=== PATIENT | female | born 1975 | race Caucasian/White ===

== ENCOUNTER → 2017-10-24 | Outpatient (CLI) | payer BC ==
[2017-10-24 10:48] LABS: BASO % 0.4 %; BASO ABS # 0.02 K/uL (0-0.2); COMPLETE YES; EOS % 2.8 %; HEMATOCRIT 37.4 % (37-47); LYMPH % 34.3 %; LYMPH ABS # 1.87 K/uL (1.2-3.4); MEAN CELL VOLUME 98.2 fL (80-100); MEAN CORPUSCULAR HEMOGLOBIN 32.3 pg (25-34); MEAN CORPUSCULAR HGB CONC 32.9 g/dl (32-36); MEAN PLATELET VOLUME 10.5 fL (7.4-10.4); MONO % 9.2 %; NEUT % 53.3 %; PLATELET COUNT 211 K/uL (130-400); RED BLOOD COUNT 3.81 M/uL (4.2-5.4); WHITE BLOOD COUNT 5.45 K/uL (4.8-10.8)
[2017-10-24 11:17] LABS: ALT/SGPT 23 U/L (12-78); BLOOD UREA NITROGEN 16 mg/dl (7-18); BUN/CREATININE RATIO 23.2 (10-20); CALCIUM 8.4 mg/dl (8.5-10.1); CARBON DIOXIDE 27 mmol/L (21-32); CHLORIDE 105 mmol/L (98-107); CHOLESTEROL 185 mg/dl (0-200); GLUCOSE 90 mg/dl (70-99); POTASSIUM 3.8 mmol/L (3.5-5.1); SODIUM 138 mmol/L (136-145)
[2017-10-24 11:28] LABS: ALKALINE PHOSPHATASE 80 U/L (45-117); AST/SGOT 14 U/L (15-37); CHOLESTEROL/HDL RATIO 2.9; HDL CHOLESTEROL 63 mg/dl; LDL CHOLESTEROL CALCULATED 90 mg/dl; TRIGLYCERIDES 162 mg/dl (0-150); VERY LOW DENSITY LIPOPROT CALC 32 mg/dl
== END | disposition home or self-care (01) ==
LOC: C.LABBC 07:41
PROVIDERS: ATTEND Neuromusculoskeletal Medicine & OMM
DX: Z00.00 Encounter for general adult medical examination without abnormal findings (principal)

== ENCOUNTER → 2018-07-11 | Outpatient (CLI) | payer OTHER | END | disposition home or self-care (01) | LOC: C.LABSPEC 10:48 | PROVIDERS: ATTEND Neuromusculoskeletal Medicine & OMM | DX: R39.9 Unspecified symptoms and signs involving the genitourinary system (principal) ==

== ENCOUNTER 2019-04-09 19:04 | Inpatient (IN) ==
[2019-04-09 20:19] LABS: Basophils # (auto) 0.01 K/uL (0-0.2); Basophils % (auto) 0.2 %; Eosinophils # (auto) 0.09 K/uL (0-0.5); Eosinophils % (auto) 2.1 %; Hematocrit (blood only) 34.2 % (37-47); Hemoglobin 11.8 g/dL (12.0-16.0); Lymphocytes # (auto) 1.63 K/uL (1.2-3.4); Lymphocytes % (auto) 38.4 %; Mean Corpuscular Hgb Conc 34.5 g/dL (32-36); Mean Platelet Volume 10.9 fL (7.4-10.4); Monocytes # (auto) 0.25 K/uL (0.11-0.59); Monocytes % (auto) 5.9 %; Neutrophils # (auto) 2.27 K/uL (1.4-6.5); Neutrophils % (auto) 53.4 %; Platelet Count 173 K/uL (130-400); RDW Coefficient of Variation 12.5 % (11.5-14.5); RDW Standard Deviation 43.2 fL (36.4-46.3); White Blood Count 4.25 K/uL (4.8-10.8)
[2019-04-09 20:26] LABS: Partial Thromboplastin Ratio 1.1; Partial Thromboplastin Time 28.9 Seconds (21.0-31.0); Prothrombin Time 10.5 Seconds (9.0-12.0)
[2019-04-09 20:42] LABS: Albumin Level 3.4 gm/dl (3.4-5.0); BUN Creatinine Ratio 10.2 (10-20); Calcium 8.8 mg/dl (8.5-10.1); Est GFR (African American) 97.3; Est GFR (Non-African American) 83.9; Potassium 3.7 mmol/L (3.5-5.1)
[2019-04-09 20:45] LABS: Bilirubin,Total 0.3 mg/dl (0.2-1); Globulin 3.5 gm/dl (2.5-4.0); Total Protein 6.9 gm/dl (6.4-8.2)
--- NOTE | 2019-04-09 20:49 | Emergency Department Note ---
History of Present Illness General Chief Complaint: Abnormal Labs/Diagnostic Testing Stated Complaint: GALL BLADDER ENLARGED, STONES Source: patient Mode of arrival: ambulatory Limitations: no limitations History of Present Illness Provider Complaint: abdominal pain Onset (ago): 1 day(s) Pain Consistency: constant Location: RUQ and epigastric Radiation: back Migration to: no migration Severity: moderate Maximum Pain Intensity: 3 Current Pain Intensity: 3 Quality: + fullness and + sharp Relieved By: + nothing Exacerbated By: + eating Associated Symptoms: + nausea; no vomiting, no diarrhea, no fever, no chills, no constipation and no dysuria Treatments prior to arrival: antacids This 44-year-old female patient presents emergency department today, ambulatory, accompanied by her . She is complaining of epigastric abdominal pain, right upper quadrant abdominal pain, and abdominal distention. Symptoms have been intermittent for the past 3 months, but significantly worsened earlier today. She has been worked up by gastroenterology due to the symptoms and had an ultrasound performed at [facility] [address] last week. She states the ultrasound showed some stones in the gallbladder as well as "irritation of my organs". The patient states her pain significantly worsened earlier today, so she contacted her bottom buffer. She did have an endoscopy scheduled for tomorrow, but because of the increase in pain, was sent for an abdominal/pelvic CT with IV and oral contrast. This is performed here and [facility] and read by radiologist to show evidence of cholecystitis as well as possible parenchymal calcification/renal calculus. The patient spoke with Dr. proctor from gastroenterology and was advised to come to the emergency department for evaluation of the gallbladder. The patient presents now complaining of ongoing pain and abdominal distention. She is taken no medications for her symptoms. She has been on Protonix for the past several weeks due to the pain and burning. She last ate just prior to arrival and had soup. She denies any current pain, but states it tends to flareup at night. She denies any chest pain, dyspnea, nausea, vomiting, diarrhea, constipation, headache, dizziness, fevers, or other associated symptoms. Related Data Patient Confirmed : No Home Medications Home Medications Medication Instructions Recorded Confirmed Type aloe vera 1 cap PO QAM 04/04/19 04/09/19 History dextroamphetamine-amphetamine 5 mg PO QAM PRN 04/04/19 04/09/19 History [Adderall] pantoprazole 40 mg PO BID 04/04/19 04/09/19 History sucralfate 1 g PO ACHS 04/04/19 04/09/19 History norethindrone-e.estradiol-iron 1 tab PO DAILY 04/09/19 04/09/19 History [Blisovi 24 Fe] Allergies Allergy/AdvReac Type Severity Reaction Status Date / Time No Known Allergies Allergy Verified 04/09/19 19:48 Past Med/Surg History Medical History Anxiety no meds Attention deficit disorder (ADD) GERD (gastroesophageal reflux disease) Social History Preferred Language: Liberian Communication Ability: Effective Flue Lining Dipper Required: No Beliefs That Will Affect Care: None Current Living Situation: Spouse Current Living Situation Comment: lives with and 2 kids Other Information That Helps Us Care for You: No Feels Safe at Home: Yes Safety Concerns: Feels Safe At This Time Smoking Status: Never smoker Second Hand Exposure: No Hx Alcohol Use: Yes Alcohol type: wine Hx Substance Use: No Review of Systems A total of 10 systems reviewed and were otherwise negative Physical Exam Vital Signs: Vital Signs - 24 hr 04/09/19 19:08 04/09/19 21:05 04/09/19 22:30 Temperature 36.9 C 36.8 C Temperature Source Oral Oral Sepsis Recent Feve r Within 48 Hours No Sepsis New/Unexpla ined Change in Men raoul Status No Sepsis Action Take n by Nursing No Action Required Pulse Rate 80 Pulse Rate [Left F eliecer] 79 75 Respiratory Rate 17 18 16 Respiratory Effort / Characteristics Non-Labored Sponta neous Non-Labored Sponta neous Non-Labored Sponta neous Respiratory Depth Normal Normal Normal Respiratory Patter n Regular Regular Regular Blood Pressure 134/70 Blood Pressure [Le ft Arm] 149/74 H 125/81 Blood Pressure Lore n 91 Blood Pressure Lore n [Left Arm] 99 95 Blood Pressure Pos ition [Left Arm] Sitting Sitting Pulse Oximetry 100 98 92 Oxygen Delivery Me thod Room Air Room Air Room Air Physical Exam: VITALS: Vitals are noted on the nurse's note and reviewed by myself. Vital signs stable. GENERAL: This is a 44-year-old female, in no acute distress, nondiaphoretic, well-developed well-nourished. SKIN: The skin was without rashes, erythema, edema, or bruising. There is no tenting of the skin. Capillary reflex less than 2 seconds. HEAD: Normocephalic atraumatic. EARS: External auditory canals clear, tympanic membranes pearly morrissey without erythema or effusion bilaterally. EYES: Pupils equal round and reactive to light and accommodation. Conjunctivae without injection, sclerae without icterus. Extraocular movements intact. NOSE: Patent, turbinates without inflammation or discharge. No sinus tenderness. MOUTH: Mucous membranes moist. Tonsils are not enlarged. Pharynx without erythema or exudate. Uvula midline. Airway patent. Tongue does not deviate. NECK: Supple without nuchal rigidity. No lymphadenopathy. No thyromegaly. Cervical spine is nontender. No JVD. HEART: Regular rate and rhythm without murmurs gallops or rubs. LUNGS: Clear to auscultation bilaterally without wheezes, rales or rhonchi. No dullness to percussion. No retractions or accessory muscle use. ABDOMEN: Positive bowel sounds x 4. Normal tympanic percussion. Abdomen was distended. There is epigastric and right upper quadrant tenderness palpation. Positive Wesley sign. Abdomen is otherwise soft, nontender, without masses or o rganomegaly. No guarding or rebound tenderness. Negative CVA tenderness bilaterally peer MUSCULOSKELETAL: No muscle atrophy, erythema, or edema noted. Full range of motion without joint tenderness in all extremities. No tenderness to palpation. Normal gait. Strength 5/5 throughout. NEURO: Patient was alert and oriented to person place and time. Normal sensation to light and sharp touch. Deep tendon reflexes 2+ throughout. No focal neurological deficits. Course The patient was seen and evaluated as above. IV access obtained, labs drawn. I discussed the case with Dr. Wells, general surgery. He did recommend admission and they will consult in the morning. He did request a repeat ultrasound and labs. Ultrasound ordered. This will be performed in the morning, as the patient ate just before arrival to the emergency department. Labs reviewed by myself. I discussed the case with the [facility] hospitalist. They did agree to eval uate the patient for admission. Please see their dictation regarding ongoing management care of this patient. Administered Medications Lactated Ringer's (Lr) 1,000 mls @ 80 mls/hr IV .[id number] EARL Stop: 05/09/19 22:22 Last Admin: 04/09/19 23:37 Dose: 80 mls/hr Documented by: [id number] Medical Decision Making Differential Diagnosis + peptic ulcer disease, + biliary pathology, + UTI, + obstruction, + mesenteric ischemia, + aortic pathology, + infections, + inflammatory bowel disease, + renal colic, + ectopic (female), + ovarian torsion (female), + tubo-ovarian abscesses (female), + pelvic inflammatory disease (female), + abdominal pain, + appendicitis, + calculus of kidney, + constipation, + diverticulitis, + endometriosis, + gastroenteritis, + pancreatitis and + small bowel obstruction Medical Records Attestation: I reviewed the patient's medical records. CT ABD/PELVIS outpatient reviewed. Home Medications Current Medication List: was personally reviewed by me Laboratory Data Attestation: I reviewed the patient's lab results. Mild leukopenia and anemia noted. No thrombocytopenia. Coags normal. Renal, hepatic function electrolytes without significant abnormality. Lipase 249. Urinalysis without any evidence of infection. Result diagrams: 04/09/19 20:02 04/09/19 20:02 Lab Results 04/09/19 04/09/19 04/09/19 Range/Units 20:02 20:02 20:02 WBC 4.25 L (4.8-10.8) K/uL RBC 3.60 L (4.2-5.4) M/uL Hgb 11.8 L (12.0-16.0) g/dL Hct 34.2 L (37-47) % MCV 95.0 (80-100) fL MCH 32.8 (25-34) pg MCHC 34.5 (32-36) g/dL RDW Std Deviation 43.2 (36.4-46.3) fL RDW Coeff of Sara 12.5 (11.5-14.5) % Plt Count 173 (130-400) K/uL MPV 10.9 H (7.4-10.4) fL Immature Gran % (Auto) 0.0 % Neut % (Auto) 53.4 % Lymph % (Auto) 38.4 % [place] % (Auto) 5.9 % Eos % (Auto) 2.1 % Baso % (Auto) 0.2 % Immature Gran # (Auto) 0.00 (0.00-0.02) K/uL Neut # (Auto) 2.27 (1.4-6.5) K/uL Lymph # (Auto) 1.63 (1.2-3.4) K/uL [place] # (Auto) 0.25 (0.11-0.59) K/uL Eos # (Auto) 0.09 (0-0.5) K/uL Baso # (Auto) 0.01 (0-0.2) K/uL PT 10.5 (9.0-12.0) Seconds INR 1.0 (0.9-1.1) APTT 28.9 (21.0-31.0) Seconds PTT Ratio 1.1 Sodium 141 (136-145) mmol/L Potassium 3.7 (3.5-5.1) mmol/L Chloride 108 H (98-107) mmol/L Carbon Dioxide 27 (21-32) mmol/L Anion Gap 6.0 (3-11) BUN 9 (7-18) mg/dl Creatinine 0.84 (0.6-1.2) mg/dl Est Cr Clr Drug Dosing 82.0 ml/min Est GFR ( Amer) 97.3 Est GFR (Non-Af Amer) 83.9 BUN/Creatinine Ratio 10.2 (10-20) Glucose 88 (70-99) mg/dl Calcium 8.8 (8.5-10.1) mg/dl Total Bilirubin 0.3 (0.2-1) mg/dl AST 10 L (15-37) U/L ALT 20 (12-78) U/L Alkaline Phosphatase 45 (45-117) U/L Total Protein 6.9 (6.4-8.2) gm/dl Albumin 3.4 (3.4-5.0) gm/dl Globulin 3.5 (2.5-4.0) gm/dl Albumin/Globulin Ratio 1.0 (0.9-2) Lipase 249 (73-393) U/L Urine Color Urine Appearance (Clear) Urine pH (4.5-7.5) Ur Specific [place] (1.000-1.030) Urine Protein (Negative) Urine Glucose (UA) (Negative) Urine Ketones (Negative) Urine Blood (Negative) Urine Nitrite (Negative) Urine Bilirubin (Negative) Urine Urobilinogen (Negative) Ur Leukocyte Esterase (Negative) Urine WBC (Auto) (0-5) /hpf Urine RBC (Auto) (0-4) /hpf U Hyaline Cast (Auto) (0-5) /lpf U Epithel Cells (Auto) (0-5) /lpf Urine Bacteria (Auto) (Negative) 04/09/19 Range/Units 20:45 WBC (4.8-10.8) K/uL RBC (4.2-5.4) M/uL Hgb (12.0-16.0) g/dL Hct (37-47) % MCV (80-100) fL MCH (25-34) pg MCHC (32-36) g/dL RDW Std Deviation (36.4-46.3) fL RDW Coeff of Sara (11.5-14.5) % Plt Count (130-400) K/uL MPV (7.4-10.4) fL Immature Gran % (Auto) % Neut % (Auto) % Lymph % (Auto) % [place] % (Auto) % Eos % (Auto) % Baso % (Auto) % Immature Gran # (Auto) (0.00-0.02) K/uL Neut # (Auto) (1.4-6.5) K/uL Lymph # (Auto) (1.2-3.4) K/uL [place] # (Auto) (0.11-0.59) K/uL Eos # (Auto) (0-0.5) K/uL Baso # (Auto) (0-0.2) K/uL PT (9.0-12.0) Seconds INR (0.9-1.1) APTT (21.0-31.0) Seconds PTT Ratio Sodium (136-145) mmol/L Potassium (3.5-5.1) mmol/L Chloride (98-107) mmol/L Carbon Dioxide (21-32) mmol/L Anion Gap (3-11) BUN (7-18) mg/dl Creatinine (0.6-1.2) mg/dl Est Cr Clr Drug Dosing ml/min Est GFR ( Amer) Est GFR (Non-Af Amer) BUN/Creatinine Ratio (10-20) Glucose (70-99) mg/dl Calcium (8.5-10.1) mg/dl Total Bilirubin (0.2-1) mg/dl AST (15-37) U/L ALT (12-78) U/L Alkaline Phosphatase (45-117) U/L Total Protein (6.4-8.2) gm/dl Albumin (3.4-5.0) gm/dl Globulin (2.5-4.0) gm/dl Albumin/Globulin Ratio (0.9-2) Lipase (73-393) U/L Urine Color Yellow Urine Appearance Clear (Clear) Urine pH 7.5 (4.5-7.5) Ur Specific [place] 1.033 H (1.000-1.030) Urine Protein Negative (Negative) Urine Glucose (UA) Negative (Negative) Urine Ketones Negative (Negative) Urine Blood Trace H (Negative) Urine Nitrite Negative (Negative) Urine Bilirubin Negative (Negative) Urine Urobilinogen Negative (Negative) Ur Leukocyte Esterase Negative (Negative) Urine WBC (Auto) 0 (0-5) /hpf Urine RBC (Auto) 0-4 (0-4) /hpf U Hyaline Cast (Auto) 0 (0-5) /lpf U Epithel Cells (Auto) 0-5 (0-5) /lpf Urine Bacteria (Auto) Negative (Negative) Imaging Data Radiologist's Impression: CT abd pelvis oral and IV con CLINICAL HISTORY: 44 years-old Female presenting with generalized abdominal PAIN and discomfort, right flank pain, EPIGASTRIC PAIN. TECHNIQUE: Multidetector CT of the abdomen and pelvis was performed after the administration of oral and intravenous contrast. IV contrast: 90 mL of Optiray 320. One or more dose lowering techniques were used consistent with the principles of ALARA (as low as reasonably achievable), including automatic exposure control, mA or kV adjustment to individual patient size, and/or use of iterative reconstruction. COMPARISON: None. CT DOSE (mGy.cm): The estimated cumulative dose is 431.18 mGycm. FINDINGS: Mental Health Consultant topogram: Unremarkable. Lung bases: Normal heart size. No pericardial or pleural effusion. No focal infiltrate or nodule at the lung bases. Liver: Normal morphology. No liver lesion. Patent hepatic vasculature. Biliary: Mild central intrahepatic and extrahepatic biliary ductal dilatation. Gallstones noted. The gallbladder wall is thickened and/or or cholecystic fluid is present. The gallbladder is not significantly distended. No radiopaque gallstones evident at the cystic duct or within the common duct. Pancreas: Normal. Spleen: Normal. Adrenal glands: Normal. Kidneys and ureters: Subcentimeter hypodense lesion in the lower pole the right kidney possibly cyst. 8 mm calcification at the upper pole the right kidney is felt to most likely be parenchymal or less likely a nonobstructing calculus. No additional renal calculi. No hydronephrosis. Ureters nondilated. Bladder: Normal. Pelvic organs: Uterus and ovaries normal. Bowel: Normal appendix. No bowel obstruction. Peritoneal cavity: No free fluid or intraperitoneal gas. Lymph nodes: No enlarged lymph nodes in the abdomen or pelvis. Vasculature: Aorta and IVC patent and normal in caliber. Abdominal wall: Small fat-containing umbilical hernia. Musculoskeletal: Focal degenerative changes at L4-5 with disc bulge and effacement of the spinal canal suspected. IMPRESSION: 1. Gallbladder wall thickening and/or cholecystic fluid with gallstones and mild intrahepatic and extra hepatic ductal or ductal dilatation. This is concerning for acute calculus cholecystitis despite the significant distention of the gallbladder. Recommend right upper quadrant ultrasound and/or HIDA scan for further assessment. 2. Nonobstructing 8 mm right renal calculus versus parenchymal calcification. This is favored to represent a parenchymal calcification. No hydronephrosis. The report will be called/faxed according to standard departmental protocol. Electronically signed by: Km Radford M.D. 04/09/2019 5:22 PM Blood Pressure Blood Pressure Findings: Normal blood pressure MDM Narrative This 44-year-old female patient presents emergency department today due to findings of acute cholecystitis on outpatient CT. The patient has been expensing pain for several months, worsening over the past 48 hours. She has been being worked up by her bottom buffer. CT scan was reviewed. Labs obtained and I did consult with the general surgeon. He recommended admission and will consult tomorrow. He did request a repeat ultrasound, as the most recent ultrasound was performed last week. This was ordered will be performed by the inpatient team. The patient did not require any analgesics or antieme tics while here in the ED. She was made n.p.o. Please see hospitalist and surgery dictation regarding ongoing management care of this patient per The chart was completed utilizing Dragon Speech voice recognition software. Grammatical errors, random word insertions, pronoun errors, and incomplete sentences are an occasional consequence of this system due to software limitations, ambient noise, and hardware issues. Any formal questions or concerns about the content, text, or information contained within the body of this dictation should be directly addressed to the provider for clarification. Impression & Plan Acute cholecystitis, Anemia, Nephrolithiasis Discharge Plan Visit Data *Final* Discharge Date/Time: 04/09/19 22:30 Chief Complaint: Abnormal Labs/Diagnostic Testing Stated Complaint: GALL BLADDER ENLARGED, STONES ED Provider: Kevin King ED Midlevel Provider: Milla Barksdale Discharge Problem: Acute cholecystitis, Anemia, Nephrolithiasis Patient Disposition: Admitted As Inpatient
[2019-04-09 21:03] LABS: Appearance Urine Clear (Clear); Bacteria Urine Automated Negative (Negative); Bilirubin Urine Negative (Negative); Blood Urine Trace (Negative); Cast Urine Automated 0 /lpf (0-5); Color Urine Yellow; Epithelial Cell Urine Auto 0-5 /lpf (0-5); Glucose Urine UA Negative (Negative); Ketones Urine Negative (Negative); Leukocyte Esterase Urine Negative (Negative); Nitrite Urine Negative (Negative); Protein Urine Negative (Negative); RBC Urine Automated 0-4 /hpf (0-4); Specific Gravity Urine 1.033 (1.000-1.030); Urobilinogen Urine Negative (Negative); WBC Urine Automated 0 /hpf (0-5); pH Urine 7.5 (4.5-7.5)
[2019-04-09] MEDS ORDERED: MoRPHine SULFATE 4 MG/ML 1 ML CARP\\VIAL IV PRN (21:39)
[2019-04-09] MEDS ORDERED: ONDANSETRON INJ 2 MG/ML 2 ML VIAL IV PRN (21:39)
--- NOTE | 2019-04-09 21:44 | History & Physical Report ---
Date of Service April 09, 2019 Assessment & Plan (1) Acute cholecystitis: 44-year-old female was admitted on 09 Apr 2019 for acute cholecystitis. Acute cholecystitis: As suggested by CT a/p ordered by her complaint supervisor. Worsening symptoms over past 48 hours. - On arrival, afebrile, not tachycardic. WBC 4, normal LFTs and lipase. CT a/p with contrast noted concerns for acute calculus cholecystitis. - ED spoke with general surgery (Dr. Wells) who recommended RUQ ultrasound and admission. - For now, will keep n.p.o. and start some IVF. Morphine and Zofran as needed for pain and nausea, respectively. Nephrolithiasis: 8 mm calcification in the right upper pole of the kidney without hydronephrosis or dilated ureters. Normal creatinine. UA negative for RBCs and WBCs. Patient has RUQ tenderness but no flank pain / ttp, fevers, vomiting, or urinary symptoms. Anemia: Admit hemoglobin 11.8, MCV 95. No evidence of acute bleeding. Ongoing medical issues: - Anxiety, attention deficit disorder: Holding her as needed Adderall. - GERD: Ongoing concurrent evaluation for the same. Held home pantoprazole and sucralfate while NPO. - Is on Blisovi as OCP. Hold while NPO. Code status: Full code. Diet: N.p.o. DVT prophy: SCDs only prior to anticipated surgery. PT/OT: Deferred. Disbo: Admit to MedSurg. (2) Nephrolithiasis: (3) Anemia: (4) Anxiety: (5) ADD (attention deficit disorder): History of Present Illness Primary Care Provider: NO PCP 44-year-old female was referred to the emergency department by her complaint supervisor for CT scan of her abdomen. Patient says that she has had some level of abdominal discomfort for about three months now. Initial evaluation by her primary care provider, then by gastroenterology, primarily for stomach issues such as GERD or peptic ulcer. She was on track to get an upper endoscopy tomorrow (15May). However, she says an outpatient RUQ ultrasound this past 09May was positive for gallstones. Over the past two evenings she has noticed waves of colicky pain, so she spoke with GI again and was referred for imaging. She has been taking a PPI and sucralfate without much relief of her symptoms. Denies other pain meds. Denies any fevers, nausea/vomiting/diarrhea, chest or back symptoms, or urinary symptoms. Of note, when told that her CT scan showed a kidney stone, she says that is new news to her. Last p.o. intake was just prior to ED arrival. --- Past medical history includes anxiety, ADHD. --- Patient denies previous surgical history. --- Social history includes no tobacco use. Rare alcohol use. Lives at home with and daughter. Allergies Allergy/AdvReac Type Severity Reaction Status Date / Time No Known Allergies Allergy Verified 04/10/19 09:11 Home Medications Home Medications Medication Instructions Recorded Confirmed Type aloe vera 1 cap PO QAM 04/04/19 04/09/19 History dextroamphetamine-amphetamine 5 mg PO QAM PRN 04/04/19 04/09/19 History [Adderall] pantoprazole 40 mg PO BID 04/04/19 04/09/19 History sucralfate 1 g PO ACHS 04/04/19 04/09/19 History norethindrone-e.estradiol-iron 1 tab PO DAILY 04/09/19 04/09/19 History [Blisovi 24 Fe] oxycodone-acetaminophen [Percocet] 1 - 2 tab PO Q6H PRN 3 Days #14 tab 04/10/19 Rx Past Med/Surg History Medical History Anxiety no meds Attention deficit disorder (ADD) GERD (gastroesophageal reflux disease) Surgical History History of cone biopsy of uterine cervix History of wisdom tooth extraction Family History Other No family history of adverse response to anesthesia Social History Preferred Language: Persian Communication Ability: Effective Tie Worker Required: No Beliefs That Will Affect Care: None Current Living Situation: Spouse Current Living Situation Comment: lives with and 2 kids Other Information That Helps Us Care for You: No Feels Safe at Home: Yes Safety Concerns: Feels Safe At This Time Smoking Status: Never smoker Second Hand Exposure: No Hx Alcohol Use: Yes Alcohol type: wine Hx Substance Use: No Review of Systems Review of Systems: Constitutional: Denies fevers, chills, focal weakness Eyes: Denies any visual loss or diplopia ENT: Denies any ear/nose/throat pain or difficulty speaking or swallowing Respiratory: Denies any dyspnea, cough, hemoptysis Cardiovascular: Denies any chest pain or feeling of edema Gastrointestinal: Positive abdominal pain. Denies nausea, vomiting, diarrhea. Musculoskeletal: Denies any acute extremity pains, myalgias, or focal weakness Skin: Denies any known acute rashes or lesions Neuro: Denies any headache, acute focal weakness or numbness, or difficulties with speech or swallow. Endocrine: Denies changes in urination. Physical Exam Physical Exam: GENERAL: Awake, alert, well-appearing, sitting upright in the bed, does not appear in acute distress. HENT: Normocephalic, atraumatic. EYES: Normal conjunctiva. Sclera non-icteric. NECK: Inspection normal. Supple and full ROM. No nuchal rigidity. CARDIAC: +S1S2 RRR, no murmurs. RESPIRATORY: Clear to auscultation. No wheezes or rales. Normal respiratory effort. GI: +BS, soft, perhaps mildly bloated. Positive RUQ ttp, less so LLQ ttp. Positive [place] sign. No rebound or guarding. EXTREMITIES: No pedal edema or calf tenderness. Moving all extremities naturally and easily. NEURO: No gross neuro deficits. Results & Data Vital Signs (Past 12 Hours) Vital Signs Temp Pulse Pulse Resp BP BP Pulse Ox 04/09/19 21:05 79 18 149/74 H 98 04/09/19 19:08 36.9 C 80 17 134/70 100 Laboratory Results 04/09/19 04/09/19 04/09/19 Range/Units 20:45 20:02 20:02 WBC (4.8-10.8) K/uL RBC (4.2-5.4) M/uL Hgb (12.0-16.0) g/dL Hct (37-47) % MCV (80-100) fL MCH (25-34) pg MCHC (32-36) g/dL RDW Std Deviation (36.4-46.3) fL RDW Coeff of Sara (11.5-14.5) % Plt Count (130-400) K/uL MPV (7.4-10.4) fL Immature Gran % (Auto) % Neut % (Auto) % Lymph % (Auto) % Norman % (Auto) % Eos % (Auto) % Baso % (Auto) % Immature Gran # (Auto) (0.00-0.02) K/uL Neut # (Auto) (1.4-6.5) K/uL Lymph # (Auto) (1.2-3.4) K/uL Norman # (Auto) (0.11-0.59) K/uL Eos # (Auto) (0-0.5) K/uL Baso # (Auto) (0-0.2) K/uL PT 10.5 (9.0-12.0) Seconds INR 1.0 (0.9-1.1) APTT 28.9 (21.0-31.0) Seconds PTT Ratio 1.1 Sodium 141 (136-145) mmol/L Potassium 3.7 (3.5-5.1) mmol/L Chloride 108 H (98-107) mmol/L Carbon Dioxide 27 (21-32) mmol/L Anion Gap 6.0 (3-11) BUN 9 (7-18) mg/dl Creatinine 0.84 (0.6-1.2) mg/dl Est Cr Clr Drug Dosing 82.0 ml/min Est GFR ( Amer) 97.3 Est GFR (Non-Af Amer) 83.9 BUN/Creatinine Ratio 10.2 (10-20) Glucose 88 (70-99) mg/dl Calcium 8.8 (8.5-10.1) mg/dl Total Bilirubin 0.3 (0.2-1) mg/dl AST 10 L (15-37) U/L ALT 20 (12-78) U/L Alkaline Phosphatase 45 (45-117) U/L Total Protein 6.9 (6.4-8.2) gm/dl Albumin 3.4 (3.4-5.0) gm/dl Globulin 3.5 (2.5-4.0) gm/dl Albumin/Globulin Ratio 1.0 (0.9-2) Lipase 249 (73-393) U/L Urine Color Yellow Urine Appearance Clear (Clear) Urine pH 7.5 (4.5-7.5) Ur Specific [place] 1.033 H (1.000-1.030) Urine Protein Negative (Negative) Urine Glucose (UA) Negative (Negative) Urine Ketones Negative (Negative) Urine Blood Trace H (Negative) Urine Nitrite Negative (Negative) Urine Bilirubin Negative (Negative) Urine Urobilinogen Negative (Negative) Ur Leukocyte Esterase Negative (Negative) Urine WBC (Auto) 0 (0-5) /hpf Urine RBC (Auto) 0-4 (0-4) /hpf U Hyaline Cast (Auto) 0 (0-5) /lpf U Epithel Cells (Auto) 0-5 (0-5) /lpf Urine Bacteria (Auto) Negative (Negative) 04/09/19 Range/Units 20:02 WBC 4.25 L (4.8-10.8) K/uL RBC 3.60 L (4.2-5.4) M/uL Hgb 11.8 L (12.0-16.0) g/dL Hct 34.2 L (37-47) % MCV 95.0 (80-100) fL MCH 32.8 (25-34) pg MCHC 34.5 (32-36) g/dL RDW Std Deviation 43.2 (36.4-46.3) fL RDW Coeff of Sara 12.5 (11.5-14.5) % Plt Count 173 (130-400) K/uL MPV 10.9 H (7.4-10.4) fL Immature Gran % (Auto) 0.0 % Neut % (Auto) 53.4 % Lymph % (Auto) 38.4 % Norman % (Auto) 5.9 % Eos % (Auto) 2.1 % Baso % (Auto) 0.2 % Immature Gran # (Auto) 0.00 (0.00-0.02) K/uL Neut # (Auto) 2.27 (1.4-6.5) K/uL Lymph # (Auto) 1.63 (1.2-3.4) K/uL Norman # (Auto) 0.25 (0.11-0.59) K/uL Eos # (Auto) 0.09 (0-0.5) K/uL Baso # (Auto) 0.01 (0-0.2) K/uL PT (9.0-12.0) Seconds INR (0.9-1.1) APTT (21.0-31.0) Seconds PTT Ratio Sodium (136-145) mmol/L Potassium (3.5-5.1) mmol/L Chloride (98-107) mmol/L Carbon Dioxide (21-32) mmol/L Anion Gap (3-11) BUN (7-18) mg/dl Creatinine (0.6-1.2) mg/dl Est Cr Clr Drug Dosing ml/min Est GFR ( Amer) Est GFR (Non-Af Amer) BUN/Creatinine Ratio (10-20) Glucose (70-99) mg/dl Calcium (8.5-10.1) mg/dl Total Bilirubin (0.2-1) mg/dl AST (15-37) U/L ALT (12-78) U/L Alkaline Phosphatase (45-117) U/L Total Protein (6.4-8.2) gm/dl Albumin (3.4-5.0) gm/dl Globulin (2.5-4.0) gm/dl Albumin/Globulin Ratio (0.9-2) Lipase (73-393) U/L Urine Color Urine Appearance (Clear) Urine pH (4.5-7.5) Ur Specific [place] (1.000-1.030) Urine Protein (Negative) Urine Glucose (UA) (Negative) Urine Ketones (Negative) Urine Blood (Negative) Urine Nitrite (Negative) Urine Bilirubin (Negative) Urine Urobilinogen (Negative) Ur Leukocyte Esterase (Negative) Urine WBC (Auto) (0-5) /hpf Urine RBC (Auto) (0-4) /hpf U Hyaline Cast (Auto) (0-5) /lpf U Epithel Cells (Auto) (0-5) /lpf Urine Bacteria (Auto) (Negative) Code Status & VTE Plan Code Status Full code VTE Prophylaxis Plan VTE Prophylaxis will be ordered: Yes Supervising Physician Co-Signing Physician Notes Attending addendum: I have physically seen this patient, have supervised the medical residents activities, and agree with the H&P unless as otherwise noted. Assessment and Plan: Acute cholecystitis- NPO IV fluids. Morphine IV as needed for moderate to severe pain. Zofran 4 mg IV every 6 hours as needed. Cipro 40 mg IV every 12 hours. Famotidine 20 mg IV every 12 hours. Consult general surgery Dr. Wells aware. Remainder of orders notations as noted. Resident Activity Tracking Resident Involvement: Resident Care Provided Care Provided: Adult [facility] Medicine
[2019-04-09] MEDS: LACTATED RINGER'S 1,000 ML IV SCH (23:37)
--- NOTE | 2019-04-10 06:46 | Ultrasound Report ---
ABDOMINAL ULTRASOUND, RIGHT UPPER QUADRANT HISTORY: RUQ pain/tenderness, acute cholecystitis?. COMPARISON: CT of the abdomen and pelvis April 09, 2019. FINDINGS: Mild biliary ductal dilatation is present. The common bile duct measures 8 mm in caliber. N o common bile duct calculi are noted. Liver morphology is normal. No hepatic lesions are identified. Note is made of moderate to marked gallbladder wall thickening. Gallstones within the gallbladder are noted. No sonographic Wesley sign was reported. The pancreas is within normal limits. There is no ri ght hydronephrosis. An echogenic right renal lesion corresponds to a fat-containing lesion by CT. Thi s represents an angiomyolipoma. IMPRESSION: 1. Moderate to marked gallbladder wall thickening with cholelithiasis. No sonographic Wesley sign. Ga llbladder wall thickening is nonspecific however the findings raise the possibility of acute cholec ystitis. A hepatobiliary scan could be obtained as indicated. 2. Mild biliary ductal dilatation with could be correlated with liver function tests. Electronically signed by: Juarez Miller M.D. 04/10/2019 6:45 AM
--- NOTE | 2019-04-10 08:40 | History & Physical Bridge Note ---
Date of Service April 10, 2019 History & Physical Bridge Note I have examined the patient, reviewed the History & Physical and in the interval since the performance of the History & Physical I have noted the following changes of clinical significance: no changes noted pt examined chart reviewed SO at bedside all questions answered proceed with mickey ruelas
--- NOTE | 2019-04-10 08:52 | Surgery Consultation ---
Date of Consultation April 10, 2019 Assessment & Plan (1) Acute cholecystitis: Pt seen and examined with Dr. Keane. Recommend cholecystectomy in OR today- patient in agreement with treatment plan. OR booked- Laparoscopic Cholecystectomy, Possible Open Cholecystectomy, with Intraoperative Cholangiogram. All questions answered. SCDs NPO No contact precautions. History of Present Illness Reason for Consultation: Acute Cholecystitis Attending Physician: Kit Tolliver MD History of Present Illness 44-year-old female who presented to [facility] ED with worsening right upper quadrant pain. Patient states that she has recently been worked up by Gastroenterology for vague symptoms of bloating, abdominal distention. Patient states that she had an outpatient GB ultrasound and that it showed gallstones. She called her GI physician yesterday who instructed her to present to ED for further workup. Patient states that she will feel bloated with increased belching after eating for the last couple of months. She states that at first it was only certain foods- cabbage, greasy foods- and now it is associated with everything she eats. She denies nausea or vomiting. In ED- CT scan of abdomen/pelvis shows Gallbladder wall thickening and/or cholecystic fluid with gallstones and mild intrahepatic and extra hepatic ductal or ductal dilatation. This is concerning for acute calculus cholecystitis despite the significant distention of the gallbladder. Recommend right upper quadrant ultrasound and/or HIDA scan for further assessment. GB Ultrasound- 1. Moderate to marked gallbladder wall thickening with cholelithiasis. No sonographic Wesley sign. Gallbladder wall thickening is nonspecific however the findings raise the possibility of acute cholecystitis. A hepatobiliary scan could be obtained as indicated. 2. Mild biliary ductal dilatation with could be correlated with liver function tests. Tot Bili, LFTs all within normal limits. Allergies Allergy/AdvReac Type Severity Reaction Status Date / Time No Known Allergies Allergy Verified 04/09/19 19:48 Home Medications Home Medications Medication Instructions Recorded Confirmed Type aloe vera 1 cap PO QAM 04/04/19 04/09/19 History dextroamphetamine-amphetamine 5 mg PO QAM PRN 04/04/19 04/09/19 History [Adderall] pantoprazole 40 mg PO BID 04/04/19 04/09/19 History sucralfate 1 g PO ACHS 04/04/19 04/09/19 History norethindrone-e.estradiol-iron 1 tab PO DAILY 04/09/19 04/09/19 History [Blisovi 24 Fe] Patient History Medical History Anxiety no meds Attention deficit disorder (ADD) GERD (gastroesophageal reflux disease) Social History Preferred Language: Citizen Of [place] Communication Ability: Effective Curing Room Worker Required: No Beliefs That Will Affect Care: None Current Living Situation: Spouse Current Living Situation Comment: lives with and 2 kids Other Information That Helps Us Care for You: No Feels Safe at Home: Yes Safety Concerns: Feels Safe At This Time Smoking Status: Never smoker Second Hand Exposure: No Hx Alcohol Use: Yes Alcohol type: wine Hx Substance Use: No Physical Exam Constitutional: well developed and well nourished; no acute distress Respiratory: normal respiratory effort; no respiratory distress and does not use accessory muscles Gastrointestinal (Abdomen): Inspection/Auscultation: + abdomen distended Percussion/Palpation: + abdomen tender (right upper quadrant ) Results & Data Vital Signs (Past 12 Hours) Vital Signs Temp Pulse Pulse Resp BP Pulse Ox 04/10/19 08:00 36.7 C 74 14 104/70 97 04/09/19 22:30 36.8 C 75 16 125/81 92 04/09/19 21:05 79 18 149/74 H 98
[2019-04-10 10:03] LABS: Pregnancy Test, Serum Negative (Negative)
[2019-04-10] MEDS ORDERED: CONRAY 60% 50 ML VIAL ONE (10:14)
[2019-04-10] MEDS ORDERED: LIDOCAINE/EPINEPHRINE 1% 20 ML VIAL ONE (10:14)
--- NOTE | 2019-04-10 10:28 | Anesthesiology Consultation ---
Date of Service April 10, 2019 Assessment & Plan (1) Encounter for pre-operative examination: Chart Review Chart Review: Acceptable Risk for Surgery and Patient NOT seen in Pre Admission Testing Consults Requested none ASA ASA2 Proposed Anesthesia Anesthesia Type: General Risk / Benefits Reviewed With: PT / POA / Parent / Guardian, Accepts Plan and Informed Consent Obtained Additional Notes hcg - neg History Surgery Operation Date: 04/10/19 08:50 Proposed Procedures p Laparoscopic Cholecystectomy, Possible Cholangiogram - Jett Keane MD Height/Weight Height: 5 ft 6.93 in Weight: 65.5 kg Allergies Allergy/AdvReac Type Severity Reaction Status Date / Time No Known Allergies Allergy Verified 04/10/19 09:11 Medications Home Medications Medication Instructions Recorded Confirmed Last Taken aloe vera 1 cap PO QAM 04/04/19 04/09/19 04/09/19 dextroamphetamine-amphetamine 5 mg PO QAM PRN 04/04/19 04/09/19 Unknown [Adderall] pantoprazole 40 mg PO BID 04/04/19 04/09/19 04/09/19 08:00 sucralfate 1 g PO ACHS 04/04/19 04/09/19 04/09/19 18:00 norethindrone-e.estradiol-iron 1 tab PO DAILY 04/09/19 04/09/19 04/09/19 [Blisovi 24 Fe] Active Medications Generic Name Dose Route Start Last Admin Trade Name Freq PRN Reason Stop Dose Admin Lactated Ringer's 1,000 mls @ 80 mls/hr 04/09/19 22:23 04/09/19 23:37 Lr IV 05/09/19 22:22 80 mls/hr .[id number] EARL Administration NPO Date Last Intake of Fluids: 04/09/19 Time Last Intake of Fluids: 18:00 Date Last Intake of Solids: 04/09/19 Time Last Intake of Solids: 18:00 Past Medical History Medical History Anxiety no meds Attention deficit disorder (ADD) GERD (gastroesophageal reflux disease) Exercise / Class Metabolic Activity II 4-5 Yardwork/Stairs/Walk up hill Past Family History Family History Other No family history of adverse response to anesthesia Past Surgical History Surgical History History of cone biopsy of uterine cervix History of wisdom tooth extraction Past Anesthesia History No Hx of Anesthesia Complications and No Family Hx of Anesthesia Complications History of PONV No Hx of PONV and No Hx of Motion Sickness Social History Smoking Status: Never smoker Hx Alcohol Use: Yes Alcohol type: wine alcohol intake frequency: a few times a week Hx Substance Use: No substance use type: does not use Physical Exam Vital Signs Last Vital Signs Temp 36.9 C 04/10/19 09:16 Pulse 74 04/10/19 09:16 Resp 20 04/10/19 09:16 BP 117/80 04/10/19 09:16 Pulse Ox 100 04/10/19 09:16 Constitutional not obese ENMT Mouth: no TMJ abnormality and oral opening not small Thyromental Distance: > or= 3.5 Finger Breadths Mallampati Class: I Neck normal visual inspection; neck extension not limited Respiratory normal respiratory effort Auscultation: lungs clear to auscultation bilaterally Cardiovascular Rate/Rhythm: regular rate and regular rhythm Heart Sounds: no murmur Neurologic moves all extremities Motor/Sensory: no sensory deficit Psychiatric Orientation: alert and oriented x 3 Testing Laboratory Results 04/09/19 20:02 04/09/19 20:02 PT 10.5 Seconds (9.0-12.0) 04/09/19 20:02 INR 1.0 (0.9-1.1) 04/09/19 20:02 APTT 28.9 Seconds (21.0-31.0) 04/09/19 20:02 Yellow 04/09/19 20:45 Clear (Clear) 04/09/19 20:45 7.5 (4.5-7.5) 04/09/19 20:45 Ur Specific [place] 1.033 (1.000-1.030) H 04/09/19 20:45 Negative (Negative) 04/09/19 20:45 Negative (Negative) 04/09/19 20:45 Negative (Negative) 04/09/19 20:45 Negative (Negative) 04/09/19 20:45 Ur Leukocyte Esterase Negative (Negative) 04/09/19 20:45 0 /hpf (0-5) 04/09/19 20:45 0-4 /hpf (0-4) 04/09/19 20:45 U Hyaline Cast (Auto) 0 /lpf (0-5) 04/09/19 20:45 U Epithel Cells (Auto) 0-5 /lpf (0-5) 04/09/19 20:45 Negative (Negative) 04/09/19 20:45
[2019-04-10] MEDS ORDERED: ePHEDrine sulfate 50 MG/ML AMP IV PRN (10:39)
[2019-04-10] MEDS ORDERED: HYDROmorphone INJ 1 MG/ML SYRINGE IV PRN (10:39)
[2019-04-10] MEDS ORDERED: ONDANSETRON INJ 2 MG/ML 2 ML VIAL IV PRN (10:39)
[2019-04-10] MEDS ORDERED: PROMETHAZINE HCL 12.5 MG in SODIUM CHLORIDE 0.9% 50 ML IV PRN (10:39)
[2019-04-10] MEDS ORDERED: ATROPINE SULFATE 0.1 MG/ML 10ML SYR IV PRN (10:39)
[2019-04-10] MEDS ORDERED: fentaNYL citrate 100 MCG/2 ML VIAL IV ONE ×2 (10:52)
[2019-04-10] MEDS ORDERED: NEOSTIGMINE METHYLSULFATE 5 MG/5 ML SYR IV ONE (10:52)
[2019-04-10] MEDS ORDERED: ONDANSETRON INJ 2 MG/ML 2 ML VIAL IV ONE (10:52)
[2019-04-10] MEDS ORDERED: PROPOFOL IV EMULSION 10 MG/ML 20 ML VIAL IV ONE (10:52)
[2019-04-10] MEDS ORDERED: ROCURONIUM BROMIDE 10 MG/ML 5 ML VIAL IV ONE (10:52)
[2019-04-10] MEDS ORDERED: MIDAZOLAM HCL 1 MG/ML 2ML VIAL IV ONE (10:52)
[2019-04-10] MEDS ORDERED: ePHEDrine sulfate 50 MG/ML SYR IV ONE (10:52)
[2019-04-10] MEDS ORDERED: DEXAMETHASONE SOD INJ 4 MG/ML VIAL IV ONE (10:52)
[2019-04-10] MEDS ORDERED: LIDOCAINE HCL 2% 2 ML VIAL/AMP(20MG/ML) INFIL ONE (10:52)
--- NOTE | 2019-04-10 11:39 | Post Operative Brief Note ---
Immediate Post Op Note v1 Date of Surgery April 10, 2019 Pre & Post Diagnosis Operation Date: 04/10/19 08:50 Pre-Op Diagnosis: Acute Cholecystitis Post-Op Diagnosis: Acute Cholecystitis Procedure Operation Date: 04/10/19 08:50 Actual Procedures p Laparoscopic Cholecystectomy with Intraoperative Cholangiogram(Not Applicable) - Jett Keane MD Surgeon Jett Keane MD Fire Inspector Carolina ROUSSEAU Estimated Blood Loss 15 Findings Consistent with Post-Op Diagnosis
--- NOTE | 2019-04-10 12:02 | Operative Report ---
Post Operative Report Pre & Post Diagnosis Operation Date: 04/10/19 08:50 Pre-Op Diagnosis: Acute Cholecystitis Post-Op Diagnosis: Acute Cholecystitis Procedure Operation Date: 04/10/19 08:50 Actual Procedures p Laparoscopic Cholecystectomy with Intraoperative Cholangiogram(Not Applicable) - Jett Keane MD The patient was brought into the operating theater general endotracheal anesthesia supine position abdomen prepped Betadine scrub solution properly draped timeout was had patient identified small incision was made supraumbilically away from previous scar sufficient enough to place a Veress needle followed by CO2 followed by a 3 mm trocar camera followed when of entry inspected no injury identified on direct visualization placed a 5 mm epigastric port with preemptive local analgesic and 2 3 mm ports subcostally gallbladder was placed under traction with the lateral port patient placed in reverse Trendelenburg position rotated to the left dissected out for the triangle MANDA wall the gallbladder appeared thickened we dissected down to able identified a long cystic duct we get around to put a clip proximally at the takeoff small urethral catheter transverse to the abdominal wall and a 14 Angiocath was positioned in the cystic duct continue serial x-rays initially thought there was some stones in the distal cystic duct we maneuver that he may be an air bubble there was free flow into the duodenum there is a pancreatic duct visualized and is interesting that the common bile duct distally appeared to be going in the third portion of the duodenum. But there are no other filling defects the Cholangiocath was removed the cystic duct securely doubly clipped and divided the artery some identified doubly clipped and divided the gallbladder stays in the antegrade fashion using the electrocautery leaving as much posterior peritoneum as possible. Gallbladder was placed in an Endopouch and taken out intact through the epigastric port subhepatic suprahepatic area was then checked for hemostasis theater satisfactory we did have some oozing we were taken the gallbladder out but eventually without stop subhepatic suprahepatic air was suctioned out we placed the camera right upper quadrant port visualize the port of entry in the supraumbilical area eugenia ROUSSEAU was present the whole case and helped with the closure camera work and exposure during the work njury identified. This point individual trochars removed direct visualization unless the umbilical trocar wounds were closed 4-0 Monocryl Steri-Strips applied procedure was tolerated well by the patient estimated blood loss 15 cc addendum Surgeon Jett Keane MD Ironworker Wire Fence Erector Carolina ROUSSEAU Estimated Blood Loss 15 Findings Consistent with Post-Op Diagnosis Specimens gallbladder and contents Description of Procedure merda I attest to the content of the Intraoperative Record and any orders documented therein. Any exceptions are noted below.
--- NOTE | 2019-04-10 12:24 | Fluoroscopy Report ---
INTRAOPERATIVE CHOLANGIOGRAM HISTORY: Post cholecystectomy. FLUOROSCOPY TIME: 3.9 seconds. 3 fluoroscopic spot images of the right upper quadrant. FINDINGS: Fluoroscopy was provided for an intraoperative cholangiogram status post cholecystectomy. C ontrast was injected through the cystic duct remnant. The common bile duct is normal in course and ca liber. There are no filling defects seen within the common bile duct to suggest a retained stone. Co ntrast extends into the small bowel. There is no intrahepatic bile duct dilatation. IMPRESSION: Fluoroscopy provided for an intraoperative cholangiogram status post cholecystectomy. No filling defects within the common bile duct. Electronically signed by: Wenceslao Lezama M.D. 04/10/2019 12:22 PM
--- NOTE | 2019-04-10 12:42 | Anesthesiology Progress Note ---
Date of Service April 10, 2019 Anesthesia Post Procedure Vital Signs Vital Signs: Temp Pulse Pulse Pulse Resp BP BP 04/10/19 12:30 95 H 18 04/10/19 12:20 92 H 23 04/10/19 12:10 101 H 13 04/10/19 12:00 36.5 C 111 H 24 04/10/19 09:16 36.9 C 74 20 04/10/19 08:00 36.7 C 74 14 104/70 04/09/19 22:30 36.8 C 75 16 125/81 04/09/19 21:05 79 18 149/74 H 04/09/19 19:08 36.9 C 80 17 134/70 BP Pulse Ox 04/10/19 12:30 117/75 100 04/10/19 12:20 123/70 100 04/10/19 12:10 133/79 100 04/10/19 12:00 173/93 H 100 04/10/19 09:16 117/80 100 04/10/19 08:00 97 04/09/19 22:30 92 04/09/19 21:05 98 04/09/19 19:08 100 Pain Intensity Abdomen: Pain Intensity: 0 Transfer of Care Handoff Completed per policy Notes Mental Status: alert / awake / arousable and participated in evaluation Patient Amnestic to Procedure: Yes Nausea / Vomiting: adequately controlled Pain: improving with treatment Airway Patency, RR, SpO2: stable & adequate BP & HR: stable & adequate Hydration State: stable & adequate Anesthetic Complications: no major complications apparent and Pt Satisfied with anesthetic care
[2019-04-10] MEDS: fentaNYL citrate 100 MCG/2 ML VIAL IV PRN ×2 (12:45→12:51)
[2019-04-10] MEDS ORDERED: MoRPHine SULFATE 4 MG/ML 1 ML CARP\\VIAL IV PRN (13:30)
[2019-04-10] MEDS ORDERED: MoRPHine SULFATE 2 MG/ML CARP IV PRN (13:30)
[2019-04-10] MEDS: LACTATED RINGER'S 1,000 ML IV SCH ×2 (13:32→20:47)
--- NOTE | 2019-04-10 15:01 | Hospitalist Progress Note ---
Date of Service April 10, 2019 Assessment & Plan (1) Acute cholecystitis: S/p lap suzie with Dr. Keane. - Feeling tired, but otherwise ok. - Post-op care per surgery (2) Nephrolithiasis: 8 mm calcification in the right upper pole of the kidney without hydronephrosis or dilated ureters. Normal creatinine. UA negative for RBCs and WBCs. Patient has RUQ tenderness but no flank pain / ttp, fevers, vomiting, or urinary symptoms. - Monitor (3) DVT prophylaxis: SCDs - Low DVT risk per admission calculator Subjective Feeling tired, but otherwise ok. No major concerns. Review of Systems Review of Systems: All systems reviewed & are unremarkable except as noted in HPI & below Physical Exam Constitutional: WD/WN, vitals as above + acute distress Eyes: EOM intact bilaterally; no conjunctival abnormality ENMT: external ear and nose normal, oropharynx normal Neck: trachea midline, no thyromegaly normal visual inspection Respiratory: normal respiratory effort, lungs clear to auscultation no respiratory distress Cardiovascular: RRR, no murmur, no edema Gastrointestinal (Abdomen): Inspection/Auscultation: abdomen normal to inspection; abdomen not distended Musculoskeletal: no cyanosis or clubbing, extremities motor strength 5/5 Skin: no rashes, warm and dry Neurologic: moves all extremities and awake Psychiatric: Orientation: alert, oriented to person and cooperative Results & Data Vital Signs (Past 12 Hours) Vital Signs Temp Pulse Pulse Resp BP BP Pulse Ox 04/10/19 14:22 89 16 117/73 99 04/10/19 13:50 36.8 C 82 14 113/72 100 04/10/19 13:20 36.7 C 98 H 18 130/53 L 100 04/10/19 13:10 36.7 C 91 H 16 125/66 100 04/10/19 13:00 36.7 C 85 17 125/74 100 04/10/19 12:50 95 H 17 124/70 04/10/19 12:40 36.7 C 97 H 22 125/77 100 04/10/19 12:30 95 H 18 117/75 100 04/10/19 12:20 92 H 23 123/70 100 04/10/19 12:10 101 H 13 133/79 100 04/10/19 12:00 36.5 C 111 H 24 173/93 H 100 04/10/19 09:16 36.9 C 74 20 117/80 100 04/10/19 08:00 36.7 C 74 14 104/70 97
[2019-04-11] MEDS: OXYCODONE/ACETAMINOPHEN 5mg/325mg TAB PO PRN ×4 (04:14→15:57)
[2019-04-11 07:27] LABS: Basophils # (auto) 0.01 K/uL (0-0.2); Basophils % (auto) 0.2 %; Eosinophils # (auto) 0.02 K/uL (0-0.5); Eosinophils % (auto) 0.3 %; Hematocrit (blood only) 33.9 % (37-47); Hemoglobin 11.7 g/dL (12.0-16.0); Immature Granulocytes # (auto) 0.01 K/uL (0.00-0.02); Immature Granulocytes % (auto) 0.2 %; Lymphocytes # (auto) 1.56 K/uL (1.2-3.4); Lymphocytes % (auto) 23.7 %; Mean Corpuscular Hgb Conc 34.5 g/dL (32-36); Mean Corpuscular Volume 94.7 fL (80-100); Monocytes # (auto) 0.51 K/uL (0.11-0.59); Monocytes % (auto) 7.8 %; Neutrophils # (auto) 4.47 K/uL (1.4-6.5); Neutrophils % (auto) 67.8 %; Platelet Count 175 K/uL (130-400); RDW Coefficient of Variation 12.4 % (11.5-14.5); RDW Standard Deviation 42.8 fL (36.4-46.3); Red Blood Count 3.58 M/uL (4.2-5.4); White Blood Count 6.58 K/uL (4.8-10.8)
[2019-04-11 07:57] LABS: Alanine Aminotransferase 30 U/L (12-78); Albumin Level 3.3 gm/dl (3.4-5.0); Alkaline Phosphatase 50 U/L (45-117); Aspartate Aminotransferase 28 U/L (15-37); Bilirubin Direct < 0.1 mg/dl (0-0.2); Bilirubin,Total 0.4 mg/dl (0.2-1); Total Protein 6.8 gm/dl (6.4-8.2)
[2019-04-11] MEDS: LACTATED RINGER'S 1,000 ML IV SCH (09:10)
--- NOTE | 2019-04-11 10:18 | Surgery Progress Note ---
Date of Service April 11, 2019 Assessment & Plan (1) Acute cholecystitis: POD #1 s/p Lap Toya with Intraop Cholangiogram Pt doing well. Seen by myself and Dr. Keane. AM labs reviewed. Having some abdominal cramping and right shoulder pain most likely from surgical gas. Eases up with ambulation. Mel liquid diet- advance diet as tolerated. Ok for discharge later this afternoon if pain is controlled, denies nausea and if she is tolerating regular diet. Will check on later this afternoon. Return precautions reviewed. Both verbal and written discharge instructions. Subjective Patient doing well- having some abdominal cramping and right shoulder pain most likely from gas from surgery. Denies nausea or vomiting. Ambulating independently in room Physical Exam Gastrointestinal (Abdomen): Percussion/Palpation: + abdomen tender (at surgical incision sites. ) and abdomen soft Results & Data Vital Signs (Past 12 Hours) Vital Signs Temp Pulse Pulse Resp BP Pulse Ox 04/11/19 07:57 36.8 C 76 16 123/74 98 04/11/19 04:00 37 C 88 18 112/77 98 04/10/19 23:28 37 C 90 14 118/70 97
--- NOTE | 2019-04-11 18:47 | Discharge Summary ---
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 Patient says that she has had some level of abdominal discomfort for about three months now. Initial eval uation by her primary care provider, then by gastroenterology, primarily for stomach issues such as GERD or peptic ulcer. She was on track to get an upper endoscopy tomorrow (15May). However, she says an outpatient RUQ ultrasound this past 09May was positive for gallstones. Over the past two evenings she has noticed waves of colicky pain, so she spoke with GI again and was referred for imaging. She has been taking a PPI and sucralfate without much relief of her symptoms. Denies other pain meds. Denies any fevers, nausea/vomiting/diarrhea, chest or back symptoms, or urinary symptoms. Of note, when told that her CT scan showed a kidney stone, she says that is new news to her. Last p.o. intake was just prior to ED arrival. --- Past medical history includes anxiety, ADHD. --- Patient denies previous surgical history. --- Social history includes no tobacco use. Rare alcohol use. Lives at home with and daughter. Principal Diagnosis Acute cholecystitis Discharge Exam Constitutional WD/WN, vitals as above + acute distress Eyes EOM intact bilaterally; no conjunctival abnormality ENMT external ear and nose normal, oropharynx normal Neck trachea midline, no thyromegaly normal visual inspection Respiratory normal respiratory effort, lungs clear to auscultation no respiratory distress Cardiovascular RRR, no murmur, no edema Gastrointestinal (Abdomen) Inspection/Auscultation: abdomen normal to inspection; abdomen not distended Musculoskeletal no cyanosis or clubbing, extremities motor strength 5/5 Skin no rashes, warm and dry Neurologic moves all extremities and awake Psychiatric Orientation: alert, oriented to person and cooperative Discharge Data Allergies Allergy/AdvReac Type Severity Reaction Status Date / Time No Known Allergies Allergy Verified 04/10/19 09:11 Consultations 04/09/19 19:49 ED Decision to Admit Stat 04/09/19 22:23 Consult General Surgery Routine Procedures Performed Operation Date: 04/10/19 08:50 Actual Procedures p Laparoscopic Cholecystectomy with Intraoperative Cholangiogram(Not Applicable) - Jett Keane MD Ordered Studies 04/09/19 19:48 US abdomen limited Urgent 04/10/19 10:15 [place] cholangiogram OR Routine Hospital Course (1) Acute cholecystitis: S/p lap suzie with Dr. Keane on 04/10. - No post-operative complications. - Post-op care per surgery - Follow up next week. (2) Nephrolithiasis: 8 mm calcification in the right upper pole of the kidney without hydronephrosis or dilated ureters. Normal creatinine. UA negative for RBCs and WBCs. Patient has RUQ tenderness but no flank pain / ttp, fevers, vomiting, or urinary symptoms. - No symptoms - Outpatient follow up (3) Anemia: (4) Anxiety: (5) ADD (attention deficit disorder): Total Time Total Time Spent Total Time Spent (In Minutes): 35 Total Time Includes: Examination of the Patient, Discharge Planning and Medication Reconciliation Discharge Plan Discharge Items Patient Disposition: Home - Self-Care Reason For Visit: ACUTE CHOLECYSTITIS Discharge Diagnosis: Acute Cholecystitis Discharge Goals: Decrease discomfort and Improve function Activity: As commented below Lifting: No more than 10 pounds Bathing Comment: May shower in 24 hrs, but do not soak or scrub your incisions. Exercise/Sports: Wait until after follow-up appointment Driving/Machine Use: Resume 3 days after discharge Non-emergency contact: Surgeon Call non-emergency contact if: you have any medication questions, your pain is not controlled, your temperature is above 101.5, your wound has increased redness and your wound has increased drainage Follow-up/Referrals: Jett Keane MD [Surgeon] - 04/24/19 9:40 am (Please, follow up at [facility] General Surgery Office with Dr. Keane on MondayApril 24 at 9:40 am. *This office is located at [address] [facility] in [place]. If you need to change this appointment, call the office at [phone].) Marco Antonio Tolliver DO [Physician] - 04/15/19 9:20 am (Please, follow up with Dr. Marco Antonio Tolliver on MondayApril 15 at 9:20 am. *If you need to change this appointment, call the office at [phone].) Diet: Regular Addtl Provider Instructions: You have steri-strips over your incisions. Do not peel or pick these off, they will fall off by themselves. Please call the General Surgery clinic at [phone] to schedule a follow-up appointment with Dr. Keane. Please call the clinic with any questions or concerns. Prescriptions: New oxycodone-acetaminophen [Percocet] 5-325 mg tablet 1 - 2 tab PO Q6H PRN (Reason: pain) 3 Days Qty: 14 RF: 0 Continued aloe vera 5,000 mg Capsule 1 cap PO QAM RF: 0 dextroamphetamine-amphetamine [Adderall] 5 mg Tablet 5 mg PO QAM PRN (Reason: to concentrate) RF: 0 sucralfate 1 gram Tablet 1 g PO ACHS RF: 0 pantoprazole 40 mg Tablet,Delayed Release (Dr/Ec) 40 mg PO BID RF: 0 norethindrone-e.estradiol-iron [Blisovi 24 Fe] 1 mg-20 mcg (24)/75 mg (4) Tablet 1 tab PO DAILY RF: 0 Stand-Alone Forms: [email or web address], [facility]/Other Patient Handouts: Cholecystectomy Laparoscopic Discharge Orders: Discharge Order (Routine); Ordered 04/11/19 Ordered By: Kit Tolliver Admission Data Admit Date/Time: 04/09/19 21:39 Attending Provider: Kit Tolliver Admit Provider: Klaus Ross Primary Care Provider: PCP,NO Other Providers: Kit Tolliver ; Jase Castro ; Porfirio Wells Service: Medical Other Interventions: Discharge Summary Assessment (RN) Last Done: 04/11/19 16:36 Pending Studies at Discharge: Yes Studies:: Pathology report. DC Date/Time DO NOT enter until pt leaves facility: 04/11/19 17:45
== END 2019-04-11 17:45 | disposition home or self-care (01) | DRG 419 ==
LOC: ED 19:04 → SUATTDRO 21:39 → 3W 21:39